=== PATIENT | female | born 1970 | race Hispanic/Latino ===

== ENCOUNTER 2017-06-08 16:15 | Emergency (ER) | payer SELFPAY ==
--- NOTE | 2017-06-08 16:44 | ED PDOC ---
Arrival/HPI - General Chief Complaint: Alcohol Ingestion Time Seen by Provider: 06/08/17 16:21 Historian: Patient, Family, EMS EM Caveat: Intoxicated, Uncooperative - History of Present Illness Narrative History of Present Illness (Text): 06/08/17 16:28 Rosalina Manning is a 46 yr old female BIBA, new to this ED, for intoxication and found on the street in [place] by EMS. Pt was sleeping and could not be awoken and was brought in. Placed on a monitor until sober and stable Time/Duration: Prior to Arrival Symptom Onset: Sudden Symptom Course: Unchanged Quality: Unable to Describe Severity Level: 1 Activities at Onset: Rest Context: Street Past Medical History - Provider Review Nursing Documentation Reviewed: Yes - Travel History Have you recently traveled outside [place] w/in the past 3 mons?: No - Past History Past History: No Previous - Tetanus Immunization Tetanus Immunization: Unknown Family/Social History - Physician Review Nursing Documentation Reviewed: Yes Family/Social History: Unknown Family HX Allergies/Home Meds Allergies/Adverse Reactions: Allergies Unobtainable Allergy (Verified 06/08/17 16:24) Home Medications: Home Meds Medication Instructions Recorded Confirmed Unobtainable 06/08/17 06/08/17 Review of Systems - Review of Systems Systems not reviewed;Unavailable: Intoxicated Constitutional: Normal Eyes: Normal ENT: Normal Respiratory: Normal Cardiovascular: Normal Gastrointestinal: Normal Genitourinary Female: Normal Musculoskeletal: Normal Skin: Rash Neurological: Gait Changes, Speech Changes Hemo/Lymphatic: Normal Psychiatric: Other (intoxicated) Physical Exam - Physical Exam Physical Exam Limitations: Intoxication Vital Signs Reviewed: Yes Vital Signs Temp Pulse Resp BP Pulse Ox 06/09/17 06:42 98.2 F 89 17 114/62 100 06/09/17 05:39 98.3 F 90 18 115/68 99 06/08/17 23:00 95 H 18 128/65 98 06/08/17 20:30 92 H 18 135/78 98 06/08/17 16:24 98.2 F 96 H 17 120/80 96 Temperature: Afebrile Blood Pressure: Normal Pulse: Regular Respiratory Rate: Normal Appearance: Positive for: Non-Toxic, Comfortable, Unkept Pain Distress: None Mental Status: Positive for: Alert and Oriented X 3 - Systems Exam Head: Present: Atraumatic, Normocephalic Pupils: Present: PERRL Extroacular Muscles: Present: EOMI Conjunctiva: Present: Normal Mouth: Present: Moist Mucous Membranes, Normal Lips Nose (Internal): Present: Normal Inspection Neck: Present: Normal Range of Motion Respiratory/Chest: Present: Clear to Auscultation, Good Air Exchange. No: Respiratory Distress, Accessory Muscle Use Cardiovascular: Present: Regular Rate and Rhythm, Normal S1, S2. No: Murmurs Abdomen: Present: Normal Bowel Sounds. No: Tenderness, Distention, Peritoneal Signs Genitourinary/Pelvic Exam: No: Normal External Genitalia, Vaginal Discharge, Vaginal Bleeding, Vaginal Lesions, Adenexal Tenderness, Adenexal Mass, Cervical Motion Tendernes, Cervical os Closed, Odor, Other Back: Present: Normal Inspection Upper Extremity: Present: Normal Inspection. No: Cyanosis, Edema Lower Extremity: Present: Normal Inspection, NORMAL PULSES, Capillary Refill < 2 s, Other (multiple small lesions likley due to bug bites). No: Edema Neurological: Present: GCS=15, Speech Normal, Motor Func Grossly Intact, Normal Sensory Function Skin: Present: Warm, Dry, Rashes (small scattered lesions b/l LE indicative of bed bug bites), Normal Color. No: Diaphoretic, Erythematous, Induration, Hot, Cold, Pale, Laceration, Abscess, Abrasion, Other Lymphatic: No: Cervical Adenopathy, Axillary Adenopathy, Inguinal Adenopathy, Other Psychiatric: Present: Alert, Oriented x 3, Normal Insight, Normal Concentration , Normal Affect, Normal Mood, Intoxicated. No: Anxious, Agitated, Depressed Mood, Suicidal Ideation, Homicidal Ideation, Delusional, Hallucinations, Lethargic, Other Medical Decision Making ED Course and Treatment: 06/08/17 17:27 Rosalina Manning is a 46 yr old female BIBA, new to this ED, for intoxication and found on the street in [place] by EMS. Pt was sleeping and could not be awoken and was brought in. Placed on a monitor until sober and stable Pt could be aroused only briefly; multiple lesions bilateral LE indicative of bed bug bites, likely due to sleeping in various places Pt's family called the nursing stn to give paul and details Plan monitor until sober; assess and dispo Labs drwn Banana Bag and NS fluids Progress note Pt continues to sleep; awakes only briefly when aroused Fluids administered ETOH 411 Continue to monitor 06/09/17 01:43 Pt awoken on examination; good lung and heart sounds, AAOx3, was able to stand and walk to bathroom to void; good balance and gait; no significant tremor, mild weakness; hand fur blower strength 4/5 Language barrier: Lebanese, [employer] service used ([id number]); has no PMD, no home and often sleeps on the street, suffers from depression, recall drinking 2 beer and 4 smal bottles of alcohol CIWA-Ar score of 5; low risk Banana Bag 1L STAT and Librium PO 10mg as per Dr. Woods Will continue to monitor overnight and discharge in the morning if stable Endorsed to Dr. Woods at 02:15 06/09/17 - Lab Interpretations Lab Results: 06/08/17 19:23 06/08/17 19:23 Lab Results 06/08/17 19:23: Sodium 153 H, Potassium 4.1, Chloride 113 H, Carbon Dioxide 28, Anion Gap 17, BUN 9, Creatinine 0.6 L, Est GFR ( Amer) > 60, Est GFR (Non -Af Amer) > 60, Random Glucose 99, Calcium 9.0, Total Bilirubin 0.1 L, AST 111 H , ALT 61 H, Alkaline Phosphatase 141 H, Total Protein 7.5, Albumin 4.0, Globulin 3.5, Albumin/Globulin Ratio 1.1 06/08/17 19:23: WBC 8.4, RBC 3.41 L, Hgb 12.1, Hct 36.9, MCV 108.2 H, MCH 35.5 H , MCHC 32.8, RDW 15.4 H, Plt Count 305, MPV 9.8 06/08/17 19:23: Alcohol, Quantitative 411 H* I have reviewed the lab results: Yes (ETOH of 411) - Medication Orders Current Medication Orders: Discontinued Medications Chlordiazepoxide (Librium) 10 mg PO STAT STA PRN Reason: Protocol Stop: 06/09/17 02:17 Last Admin: 06/09/17 05:34 Dose: 10 mg Folic Acid 1 mg/ Thiamine HCl 100 mg/ Multivitamins/Vitamin C 10 ml/ Dextrose 1 ,011.2 mls @ 100 mls/hr IV .Q10H7M [facility] Last Admin: 06/08/17 22:32 Dose: 100 mls/hr eMAR Start Stop Document 06/08/17 22:32 IT (Rec: 06/08/17 22:32 IT [id number]) Intravenous Solution Start Date 06/08/17 Start Time 22:32 Sodium Chloride (Sodium Chloride 0.9%) 1,000 mls @ 999 mls/hr IV .Q1H1M STA Stop: 06/08/17 21:45 Last Admin: 06/08/17 22:32 Dose: 999 mls/hr eMAR Start Stop Document 06/08/17 22:32 IT (Rec: 06/08/17 22:32 IT [id number]) Intravenous Solution Start Date 06/08/17 Start Time 22:32 Disposition/Present on Arrival - Present on Arrival Any Indicators Present on Arrival: Yes History of DVT/PE: No History of Uncontrolled Diabetes: No Urinary Catheter: No History of Decub. Ulcer: No - Disposition Have Diagnosis and Disposition been Completed?: Yes Diagnosis: Alcohol abuse Disposition: HOME/ ROUTINE Disposition Time: 06:00 (if stable) Patient Plan: Discharge Condition: STABLE Discharge Instructions (ExitCare): Alcohol Abuse and Alcoholism (DC) Referrals: PCP,NO [Primary Care Provider] - Follow up with primary Forms: dotSyntax (Yakut)
[2017-06-08 19:42] LABS: HEMOGLOBIN 12.1 g/dL (12.0-16.0); MEAN CELL VOLUME 108.2 fl (80.0-105.0); MEAN CORPUSCULAR HEMOGLOBIN 35.5 pg (25.0-35.0); MEAN CORPUSCULAR HGB CONC 32.8 g/dl (31.0-37.0); MEAN PLATELET VOLUME 9.8 fl (7.0-11.0); RBC 3.41 10^6/uL (3.5-6.1); RED CELL DISTRIBUTION WIDTH 15.4 % (11.5-14.5); WHITE BLOOD COUNT 8.4 10^3/ul (4.5-11.0)
[2017-06-08 19:55] LABS: ALB/GLOB RATIO 1.1 (1.1-1.8); ALT/SGPT 61 U/L (7-56); AST/SGOT 111 U/L (14-36); BLOOD UREA NITROGEN 9 mg/dL (7-21); GFR AFRICAN-AMERICAN > 60; GFR NON-AFRICAN AMERICAN > 60
[2017-06-08] MEDS ORDERED: Sodium Chloride 0.9% 1,000 ML IV STA (20:45)
[2017-06-08] MEDS ORDERED: Folic Acid 1 MG, Thiamine 100 MG, Multivitamin (MVI) 10 ML in Dextrose 5% In Water 1,00... IV SCH (21:00)
[2017-06-09] MEDS ORDERED: Folic Acid 1 MG, Thiamine 100 MG, Multivitamin (MVI) 10 ML in Dextrose 5% In Water 1,00... IV SCH (02:16)
[2017-06-09 11:17] VITALS: BP 114/62; PULSE 89; RESP 17; TEMP 98.2; O2SAT 100; BMI 20.5
== END 2017-06-09 06:43 | disposition home or self-care (01) ==
LOC: ED 16:15
DX: F10.10 Alcohol abuse, uncomplicated (principal); Y90.8 Blood alcohol level of 240 mg/100 ml or more
CPT/HCPCS: 80053; 82009; 84600; 85027; 99284; G0480; J3411; J7040; J7070